=== PATIENT | female | born 1980 ===

== ENCOUNTER → 2023-11-27 | Day surgery (SDC) | payer BC, OTHER ==
[2023-10-17 10:58] VITALS: BMI 62.9
[~2023-11-27] MED LIST: LACTATED RINGERS 1,000 ML IV SCH; LIDOCAINE 1% INJ 10MG/ML (20 ML MDV) ONE; PROPOFOL 10 MG/ML 20 ML VIAL IV ONE
[2023-11-27] MEDS: LACTATED RINGERS 1,000 ML IV ONE (10:36)
[2023-11-27 11:03] VITALS: TEMP 97
--- NOTE | 2023-11-27 11:51 | P.PCN ---
Date of Procedure: 11/27/23 Procedure(s) Performed: BRIEF HISTORY: Patient is a 42-year-old pleasant female scheduled for an elective colonoscopy as a part of screening for colon cancer and family history of colon cancer. Her mother was diagnosed with colon cancer at age 50. PROCEDURE PERFORMED: Colonoscopy. PREOPERATIVE DIAGNOSIS: Screening for colon cancer and family history of colon cancer.. IV sedation per Anesthesia. PROCEDURE: After informed consent was obtained, the patient, was brought into the endoscopy unit. IV sedation was administered by Anesthesia under continuous monitoring. Digital rectal examination was normal. Initially the Olympus CF-160 flexible video colonoscope was then inserted in the rectum, gradually advanced into the right colon without any difficulty. Careful examination was performed as the scope was gradually being withdrawn. Ileocecal valve was visualized and appeared normal. Prep was excellent. Despite multiple times I was not able to advance the scope into the base of the cecum, ileocecal valve and part of the cecum was visualized. Mucosa of the cecum, ascending colon, transverse colon, descending colon, sigmoid colon, and rectum appeared normal. Retroflexion was performed in the rectum and no lesions were seen. The patient tolerated the procedure well. IMPRESSION: Normal-appearing colon from rectum to cecum with no evidence of colorectal neoplasia . RECOMMENDATIONS: Findings of this examination were discussed with the patient as well as a family. She was advised to have a repeat screening colonoscopy every 5 years because of the family history of colon cancer.
[2023-11-27 12:40] VITALS: BP 109/80; PULSE 82; RESP 14
== END ==
LOC: ORWHC2ENDO 09:58
PROVIDERS: ATTEND Internal Medicine Gastroenterology
DX: Z12.11 Encounter for screening for malignant neoplasm of colon (principal); F41.9 Anxiety disorder, unspecified; F32.A Depression, unspecified; K58.9 Irritable bowel syndrome, unspecified; K21.9 Gastro-esophageal reflux disease without esophagitis; Z80.0 Family history of malignant neoplasm of digestive organs; Z79.899 Other long term (current) drug therapy
CPT/HCPCS: 45378; J2001; J2704